=== PATIENT | female | born 1950 | race Two or more races ===

== ENCOUNTER 2017-10-05 13:38 | Emergency (ER) | payer SELFPAY ==
[2017-10-05 13:44] VITALS: BP 147/81; PULSE 73; TEMP 98.4; BMI 33.2
--- NOTE | 2017-10-05 14:41 | PDOC ---
Rapid Medical Evaluation Chief Complaint: Shortness of Breath Time Seen by Provider: 10/05/17 14:35 Medical Evaluation: Allergies Allergy/AdvReac Type Severity Reaction Status Date / Time No Known Allergies Allergy Verified 10/05/17 13:40 Vital Signs Temp Pulse Resp BP Pulse Ox 98.4 F 73 18 147/81 100 10/05/17 13:41 10/05/17 13:41 10/05/17 13:41 10/05/17 13:41 10/05/17 13:41 10/05/17 14:37 Pt. is a 66 y/o F who presents to the ED with lower leg pain and SOB. Pt. traveled from [place] two weeks ago. Exam: ambulatory, no acute respiratory distress. Pain to both lower extremites, L worse than R. L leg mildly swollen. Orders: CBC, CMP, PT/INR, Trop, CXR, Duplex US, EKG Pt. to proceed to Main ED for further evaluation
[2017-10-05 15:41] LABS: BASO % 1.2 % (0-2.0); EOS % 4.5 % (0-4.5); HEMATOCRIT 43.6 % (32.4-45.2); HEMOGLOBIN 14.1 GM/dL (10.7-15.3); LYMPH % 33.2 % (8-40); MCH 28.1 pg (25.7-33.7); MCHC 32.4 g/dl (32.0-36.0); MEAN CELL VOLUME 86.8 fl (80-96); MONO % 9.2 % (3.8-10.2); NEUT % 51.9 % (42.8-82.8); RBC 5.03 M/mm3 (3.60-5.2); RDW 15.3 % (11.6-15.6); WHITE BLOOD COUNT 6.5 K/mm3 (4.0-10.0)
[2017-10-05 15:55] LABS: INR 0.98 (0.82-1.09); PROTHROMBIN TIME (PATIENT) 11.1 SEC (9.7-13.0)
[2017-10-05 16:31] LABS: ALBUMIN 3.3 g/dl (3.4-5.0); ANION GAP 7 (8-16); BILIRUBIN,TOTAL 0.3 mg/dL (0.2-1.0); BLOOD UREA NITROGEN 11 mg/dL (7-18); CALCIUM 8.5 mg/dL (8.5-10.1); CHLORIDE 107 mmol/L (98-107); CO2 27 mmol/L (21-32); CREATININE 0.6 mg/dL (0.55-1.02); GLUCOSE,RANDOM 107 mg/dL (74-106); SGOT/AST 20 U/L (15-37); SGPT/ALT 22 U/L (12-78); SODIUM 141 mmol/L (136-145); TOT PROT 7.4 g/dl (6.4-8.2)
[2017-10-05 16:32] LABS: ALK PHOS 116 U/L (45-117)
[2017-10-05 16:49] LABS: MEAN PLT VOLUME 9.9 fl (7.5-11.1); PLATELET COUNT 232 K/MM3 (134-434)
[2017-10-05 16:50] LABS: PLATELET ESTIMATE ADEQUATE
--- NOTE | 2017-10-05 17:47 | PDOC ---
History of Present Illness - General History Source: Patient Exam Limitations: No Limitations - History of Present Illness Initial Comments: 10/05/17 17:48 The patient is a 66 year old female with past medical history of hypertension who presents to the ED with complaints of shortness of breath and lower extremity swelling for the past two days. The patient notes the swelling was worse in her left leg than her right. She also adds recent travel to [place] which she returned last week. Denies any palpitations, diaphoresis, LOC, headache, focal neurological symptoms. Denies any recent illness, fevers, or chills. <Hawa Borja - Last Filed: 10/05/17 17:52> <Hali Weaver - Last Filed: 10/05/17 18:04> - General Chief Complaint: Shortness of Breath Stated Complaint: SOB, LEGS PAIN Time Seen by Provider: 10/05/17 14:35 Past History <Hawa Borja - Last Filed: 10/05/17 17:52> - Past Medical History COPD: No HTN: Yes - Suicide/Smoking/Psychosocial Hx Smoking History: Never smoked Have you smoked in the past 12 months: No Information on smoking cessation initiated: No Hx Alcohol Use: No Drug/Substance Use Hx: No Substance Use Type: None <Hali Weaver - Last Filed: 10/05/17 18:04> - Past Medical History Allergies/Adverse Reactions: Allergies Allergy/AdvReac Type Severity Reaction Status Date / Time No Known Allergies Allergy Verified 10/05/17 13:40 Home Medications: Ambulatory Orders NK [No Known Home Medication] 10/05/17 Review of Systems - Review of Systems Able to Perform ROS?: Yes Comments:: 10/05/17 17:48 CONSTITUTIONAL: Absent: fever, chills, diaphoresis, generalized weakness, malaise, loss of appetite HEENT: Absent: rhinorrhea, nasal congestion, throat pain, throat swelling, difficulty swallowing, mouth swelling, ear pain, eye pain, visual Changes CARDIOVASCULAR: (+) lower extremity edema Absent: chest pain, syncope, palpitations, irregular heart rate, lightheadedness RESPIRATORY: (+) shortness of breath Absent: cough, dyspnea with exertion, orthopnea, wheezing, stridor, hemoptysis GASTROINTESTINAL: Absent: abdominal pain, abdominal distension, nausea, vomiting, diarrhea, constipation, melena, hematochezia GENITOURINARY: Absent: dysuria, frequency, urgency, hesitancy, hematuria, flank pain, genital pain MUSCULOSKELETAL: Absent: myalgia, arthralgia, joint swelling SKIN: Absent: rash, itching, pallor HEMATOLOGIC/IMMUNOLOGIC: Absent: easy bleeding, easy bruising, lymphadenopathy, frequent infections ENDOCRINE: Absent: unexplained weight gain, unexplained weight loss, heat intolerance, cold intolerance NEUROLOGIC: Absent: headache, focal weakness or paresthesias, dizziness, unsteady gait, seizure, mental status changes, bladder or bowel incontinence PSYCHIATRIC: Absent: anxiety, depression, suicidal or homicidal ideation, hallucinations. All Other Systems: Reviewed and Negative <HuongHawa - Last Filed: 10/05/17 17:52> *Physical Exam - Vital Signs Last Vital Signs Temp Pulse Resp BP Pulse Ox 98.4 F 73 18 147/81 100 10/05/17 13:41 10/05/17 13:41 10/05/17 13:41 10/05/17 13:41 10/05/17 13:41 - Physical Exam Comments: 10/05/17 17:49 GENERAL: Well developed, well nourished. Awake and alert. No acute distress. HEENT: Normocephalic, atraumatic. PERRLA, EOMI. No conjunctival pallor. Sclera are non- icteric. Moist mucous membranes. Oropharynx is clear. NECK: Supple. Full ROM. No JVD. Carotid pulses 2+ and symmetric, without bruits. No thyromegaly. No lymphadenopathy. CARDIOVASCULAR: Regular rate and rhythm. No murmurs, rubs, or gallops. Distal pulses are 2+ and symmetric. PULMONARY: No evidence of respiratory distress. Lungs clear to auscultation bilaterally. No wheezing, rales or rhonchi. ABDOMINAL: Soft. Non-tender. Non-distended. No rebound or guarding. No organomegaly. Normoactive bowel sounds. MUSCULOSKELETAL Normal range of motion at all joints. No bony deformities or tenderness. No CVA tenderness. EXTREMITIES: Left medial knee pain on palpation. No erythema. No patellar ballottement. Full ROM. No cyanosis. No clubbing. No edema. No calf tenderness. SKIN: Warm and dry. Normal capillary refill. No rashes. No jaundice. NEUROLOGICAL: Alert, awake, appropriate. Cranial nerves 2-12 intact. No motor deficits in the in face, upper extremities and lower extremities. Normoreflexic in the upper and lower extremities. Normal speech. PSYCHIATRIC: Cooperative. Good eye contact. Appropriate mood and affect. <Hawa Borja - Last Filed: 10/05/17 17:52> - Vital Signs Last Vital Signs Temp Pulse Resp BP Pulse Ox 98.4 F 73 18 147/81 100 10/05/17 13:41 10/05/17 13:41 10/05/17 13:41 10/05/17 13:41 10/05/17 13:41 <OwenHali Carolyn - Last Filed: 10/05/17 18:04> Heart Score/ECG Review - ECG Intrepretation Comment:: 10/05/17 17:53 EKG obtained at 14:00 Normal sinus rhythm at 79 bpm. Right bundle branch block <Hawa Borja - Last Filed: 10/05/17 17:52> ED Treatment Course - LABORATORY CBC & Chemistry Diagram: 10/05/17 15:32 10/05/17 15:32 - ADDITIONAL ORDERS Additional order review: Laboratory Results 10/05/17 10/05/17 10/05/17 15:33 15:32 15:32 PT with INR 11.10 INR 0.98 Sodium 141 Potassium 4.0 Chloride 107 Carbon Dioxide 27 Anion Gap 7 L BUN 11 Creatinine 0.6 Creat Clearance w eGFR > 60 Random Glucose 107 H Calcium 8.5 Total Bilirubin 0.3 AST 20 ALT 22 Alkaline Phosphatase 116 Creatine Kinase 54 Troponin I < 0.02 Total Protein 7.4 Albumin 3.3 L 10/05/17 15:32 RBC 5.03 MCV 86.8 MCHC 32.4 RDW 15.3 MPV 9.9 Neutrophils % 51.9 Lymphocytes % 33.2 Monocytes % 9.2 Eosinophils % 4.5 Basophils % 1.2 - RADIOLOGY Radiograph Interpretation: 10/05/17 17:53 Vascular study of bilateral lower extremities as reviewed by Dr. Pitts reports no evidence of DVT in either extremities. <Hawa Borja - Last Filed: 10/05/17 17:52> - LABORATORY CBC & Chemistry Diagram: 10/05/17 15:32 10/05/17 15:32 - ADDITIONAL ORDERS Additional order review: Laboratory Results 10/05/17 10/05/17 10/05/17 15:33 15:32 15:32 PT with INR 11.10 INR 0.98 Sodium 141 Potassium 4.0 Chloride 107 Carbon Dioxide 27 Anion Gap 7 L BUN 11 Creatinine 0.6 Creat Clearance w eGFR > 60 Random Glucose 107 H Calcium 8.5 Total Bilirubin 0.3 AST 20 ALT 22 Alkaline Phosphatase 116 Creatine Kinase 54 Troponin I < 0.02 Total Protein 7.4 Albumin 3.3 L 10/05/17 15:32 RBC 5.03 MCV 86.8 MCHC 32.4 RDW 15.3 MPV 9.9 Neutrophils % 51.9 Lymphocytes % 33.2 Monocytes % 9.2 Eosinophils % 4.5 Basophils % 1.2 <Hali Weaver - Last Filed: 10/05/17 18:04> Medical Decision Making - Medical Decision Making 10/05/17 17:58 66 YO FEMALE FLEW 5 HOURS FROM [place] LAST WEEK -she has had some leg swelling and sob -denies chest pain -ekg shows old inferior and BBB,no priors labs unremearkable cxr no infiltrates,no congestion.no effusions neg trop -chronic left knee pain-no injury,diff diag includes OA <Hali Weaver - Last Filed: 10/05/17 18:04> *DC/Admit/Observation/Transfer - Attestations Scribe Attestion: 10/05/17 17:52 Documentation prepared by Hawa Borja, acting as medical research assistant for Hali Weaver MD. <Hawa Borja - Last Filed: 10/05/17 17:52> <Hali Weaver - Last Filed: 10/05/17 18:04> Diagnosis at time of Disposition: Leg swelling Dyspnea Qualifiers: Dyspnea type: unspecified Qualified Code(s): R06.00 - Dyspnea, unspecified - Discharge Dispostion Disposition: HOME Condition at time of disposition: Stable - Referrals Referrals: Manny Beckham MD [Staff Physician] - - Patient Instructions Printed Discharge Instructions: DI for Shortness of Breath, DI for Knee Pain, DI for Peripheral Edema -- Bilateral Additional Instructions: please follow up with Dr Beckham at the clinic return for worsening symptoms Take tylenol of aleve or motrin for knee pain Print Language: URDU
--- NOTE | 2017-10-06 09:47 | EKG ---
Test Reason : Blood Pressure : / mmHG Vent. Rate : 079 BPM Atrial Rate : 079 BPM P-R Int : 152 ms QRS Dur : 134 ms QT Int : 414 ms P-R-T Axes : 024 -08 004 degrees QTc Int : 474 ms NORMAL SINUS RHYTHM RIGHT BUNDLE BRANCH BLOCK INFERIOR INFARCT , AGE UNDETERMINED ABNORMAL ECG NO PREVIOUS ECGS AVAILABLE Confirmed by SEBASTIÁN COOK MD ([id number]) on 10/06/2017 9:47:38 AM Referred By: CLOVIS Confirmed By:SEBASTIÁN COOK MD
== END 2017-10-05 18:05 | disposition home or self-care (01) ==
LOC: JER 13:38
DX: R06.00 Dyspnea, unspecified (principal); R60.0 Localized edema
CPT/HCPCS: 36415; 71046-TC-FY; 80053; 82550; 84484; 85025; 85610; 93005; 93010; 93970-TC; 99283-25